=== PATIENT | female | born 1940 | race African-American/Black ===

== ENCOUNTER 2021-04-19 17:26 | Emergency (ER) | payer OTHER ==
[~2021-04-19] VITALS: Ht 157.5 cm; Wt 63.5 kg
[2021-04-19] MEDS ORDERED: CHILDREN'S ASPI81 MG (17:36)
[2021-04-19] MEDS ORDERED: NORVASC5 MG (17:36)
[2021-04-19] MEDS ORDERED: MECLIZINE HCL25 MG PO (22:47)
== END 2021-04-19 23:41 | disposition home or self-care (01) ==
LOC: ER 17:26
DX: R42 Dizziness and giddiness (principal)